=== PATIENT | female | born 1970 ===

== ENCOUNTER 2019-04-29 18:23 | Emergency (ER) | payer BC ==
--- OUTSIDE RECORDS SUMMARY | 2019-04-29 18:39 | XMS REPORT | Continuity of Care Document ---
:1970 External Reference #:[id number] Author Name Diana Duong MD Address [address] [place] [id number] Care Team Providers Name Role Phone Kristan Dove RPAC - Surgical Care Team Information Mobile Ui/Ux Designer Julito Titus BAKESHOP CLEANER - Nurse Care Team Information Mobile Ui/Ux Designer Practitioner Problems Active Problems Provider Date Traumatic arthropathy of the ankle and/or Domonique Barajas PA Onset: 2018 foot Vitamin D deficiency Julito Titus FNP Onset: 11/01/2018 Anemia Julito Titus FNP Onset: 11/01/2018 Elevated blood-pressure reading without Julito Titus FNP Onset: 11/2018 diagnosis of hypertension Social History Type Date Description Comments Sex Unknown Tobacco Use Start: Unknown Never Smoked Cigarettes ETOH Use Drinks Alcoholic Beverages Occasionally Recreational Drug Use Denies Drug Use Tobacco Use Start: Unknown Patient denies history of smoking Smoking Status Reviewed: 03/13/19 Patient denies history of smoking Allergies, Adverse Reactions, Alerts Description No Known Drug Allergies Medications Active Medications SIG Qnty Indications Ordering Provider Date Diclofenac Sodium ER 1 by mouth every 30tabs Diana Duong MD 2018 day with food 100mg Tablets ER 24HR Ibuprofen 200 3 tabs by mouth Unknown 200mg three times a Tablets day as needed History Medications No Active Medications Unknown 11/01/2018 - 11/11/2018 Diclofenac Sodium ER 1 by mouth every 30tabs Diana Duong MD 2018 - day with food 11/01/2018 100mg Tablets ER 24HR Medications Administered in Office Medication SIG Qnty Indications Ordering Provider Date Depomedrol 40mg/1cc Diana Duong MD 03/13/2019 (methylprednisolone acetate) Injection Betamethasone Acetate & Kristan Dove [facility] 06/11/2018 Sodium Phosphate 3 MG Of Each Injection Immunizations Description No Information Available Vital Signs Date Vital Result Comment 03/13/2019 2:00pm BP Systolic 130 mmHg BP Diastolic 70 mmHg Body Temperature 97.0 F Heart Rate 86 /min Height 65 inches 5'5" [place] body weight in kilograms 57 kg O2 % BldC Oximetry 97 % 03/03/2019 2:34pm BP Systolic 122 mmHg BP Diastolic 829 mmHg Body Temperature 97.7 F Heart Rate 70 /min Height 65 inches 5'5" [place] body weight in kilograms 57 kg O2 % BldC Oximetry 96 % Results Test Date Facility Test Result H/L Range Note CBC 11/01/2018 [facility] [address] White Blood 8.0 K/uL Normal 3.1-10.7 1 W/Automated [address] [place] [address] [phone] Red Blood Count 4.48 M/uL Normal 3.90-5.40 Hemoglobin 12.9 gm/dL Normal 11.6-15.8 Hematocrit 40.7 % Normal 36.0-46.1 Mean Cell Volume 90.8 fl Normal 80.9-99.0 Mean Corpuscular HGB 28.8 pg Normal 25.9-32.7 Mean Corpuscular HGB Conc 31.7 g/dL Normal 30.8-34.3 Platelet Count 378 K/uL High 155-360 Red Cell Distri Width SD 50.9 fl High 36-47 Red Cell Distri Width %CV 15.2 % High 11.7-14.4 Mean Platelet Volume 10.0 fL Normal 8.9-12.4 Neut% 69.2 % Normal 40.4-72.8 Lymph % 20.4 % Normal 20.0-42.0 [place] % 7.6 % Normal 4.3-13.2 Eo% 1.8 % Normal 0.0-6.6 Bas% 0.6 % Normal 0.0-1.1 Immature Grans 0.4 % Normal 0.0-5.0 NRBC % 0.0 /100WBC < 10/ 100 WBC Neut# 5.53 K/uL Normal 1.8-7.0 Lymph # 1.63 K/uL Normal 1.0-4.0 [place] # 0.61 K/uL Normal 0.3-0.9 Eos # 0.14 K/uL Normal 0.0-0.5 Baso # 0.05 K/uL Normal 0.0-0.1 Immature Grans Absolute 0.03 K/uL NRBC # 0.00 K/uL Comprehensive 11/01/[address] Glucose 90 mg/dL Normal 74-106 Metabolic Panel [address] [place] [address] [phone] BUN 18 mg/dL Normal 7-18 Creatinine 0.7 mg/dL Normal 0.6-1.3 Glom Filtration Rate, Estimate >60 mL/min >60 If >60 mL/min >60 2 BUN/Creat 25.7 ratio Sodium 140 mmol/L Normal 136-145 Potassium 4.1 mmol/L Normal 3.5-5.1 Chloride 107 mmol/L Normal 98-107 Carbon Dioxide 26 mmol/L Normal 21-32 Anion Gap 7 mEq/L Low 8-16 Calcium 8.6 mg/dL Normal 8.5-10.1 Total Protein 7.7 g/dL Normal 6.4-8.2 Albumin 3.6 g/dL Normal 3.4-5.0 Globulin 4.1 g/dL Normal 1.9-4.3 Alb/Glob 0.9 ratio Bilirubin,Total 0.2 mg/dL Normal 0.2-1.0 Sgot/Ast 23 U/L Normal 15-37 SGPT/Alt 24 U/L Normal 12-78 Alkaline Phosphatase 76 U/L Normal 45-117 LDL Cholesterol 11/01/[address] Cholesterol 240 mg/dL High < 200 3 Profile [address] [place] [address] [phone] Triglycerides 195 mg/dL High <150 4 HDL Cholesterol 65 mg/dL >40 5 LDL-Cholesterol 136 mg/dL < 100 6 Laboratory test 11/01/[address] Vitamin D,1,25 57.9 pg/mL 19.9-79.3 7 finding [address] [place] [address] [phone] Iron-Tibc-%Sat 11/01/2018 [facility] [address] Serum Iron 44 g/dL Low 50- 170 [address] [place] [address] [phone] Total Iron Binding Capacity 379 g/dL Normal 250-450 Transferrin %Saturation 12 % Normal 12-57 1 D64.9 Z00.00 E55.9 2 Note: Persistent reduction for 3 months or more in an eGFR <60 mL/min/1.73 m2 defines CKD. Patients with eGFR values >/=60 mL/min/1.73 m2 may also have CKD if evidence of persistent proteinuria is present. The original MDRD equation for estimated GFR is not valid for patients less than 18 years of age. Additional information may be found at www.kdoqi.org. 3 Reference Guidelines*: Desirable: ........... < 200 mg/dL Borderline High: ..... 200-239 mg/dL High: ................ >= 240 mg/dL * The National Cholesterol Education Program (NCEP) 4 Reference Guidelines*: Normal: ............. < 150 mg/dL Borderline High: .... 150-199 mg/dL High: ............... 200-499 mg/dL Very High: .......... > 500 mg/dL * Source: National Cholesterol Education Program (NCEP) 5 Reference Guidelines*: Low HDL: ..... < 40 mg/dL Normal: ..... 40-60 mg/dL Desirable: ... > 60 mg/dL *The National Cholesterol Education Program(NCEP) 6 Reference Guidelines*: Optimal:........... <100 mg/dL Near Optimal....... 100-129 mg/dL Borderline High.... 130-159 mg/dL High............... 160-189 mg/dL Very High.......... >=190 mg/dL * Source: National Cholesterol Education Program (NCEP) 7 Performed at: [address] [id number] Boatbuilder Supervisor: Evre Dozier MD, Phone: [phone] Procedures Date Code Description Status 03/13/2019 63276 Radiology, Knee 3 Views Completed 03/03/2019 11005 Radiology, Knee 3 Views Completed 11/27/2017 [id number] Mammogram Completed 09/27/2017 [id number] Colonoscopy Completed Medical Devices Description No Information Available Encounters Type Date Location Provider Dx Diagnosis Office Visit 03/03/2019 Orthopaedic Office Kristan Dove M25.562 Pain in left knee 2:30p S., RPAC M25.462 Effusion, left knee Office Visit 02/12/2019 4:15p Family Medicine Merry Jacob, R03.[address] PNP-BC, ADMISSION NURSE COORDINATOR, blood-pressure Ibclc reading, w/o diagnosis of htn J30.9 Allergic rhinitis, unspecified S83.402A Sprain of unsp collateral ligament of left knee, init encntr Office Visit 11/11/2018 10:30a Orthopaedic Office Domonique Barajas, M25.571 Pain in right PA ankle and joints of right foot 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, right ankle and foot R03.0 Elevated blood-pressure reading, w/o diagnosis of htn Office Visit 09/18/2018 1:15p Orthopaedic Office Kristan Dove M25.571 Pain in right S., RPAC ankle and joints of right foot 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, right ankle and foot Assessments Date Code Description Provider 03/13/2019 M17.12 Unilateral primary osteoarthritis, Diana Duong MD left knee 03/13/2019 M25.562 Pain in left knee Kristan Dove, [facility] 03/13/2019 S83.232D Complex tear of medial meniscus, Diana Duong MD current injury, left knee, subsequent encounter 03/03/2019 M25.562 Pain in left knee Kristan Dove, [facility] 03/03/2019 M25.462 Effusion, left knee Kristan Dove, [facility] 02/12/2019 R03.0 Elevated blood-pressure reading, Merry Jacob PNP-BC, ADMISSION NURSE COORDINATOR , without diagnosis of hypertension Ibclc 02/12/2019 J30.9 Allergic rhinitis, unspecified Merry Jacob PNP-BC, ADMISSION NURSE COORDINATOR, Ibclc 02/12/2019 S83.402A Sprain of unspecified collateral Merry Jacob, PNP-BC, ADMISSION NURSE COORDINATOR, ligament of left knee, initial Ibclc encounter 11/11/2018 M25.571 Pain in right ankle and joints of Domonique Barajas, PA right foot 11/11/2018 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, right ankle Domonique Barajas, PA and foot 11/11/2018 R03.0 Elevated blood-pressure reading, Domonique Barajas PA without diagnosis of hypert 11/01/2018 Z00.00 Encounter for general adult medical ClJulito jaramillo, ADMISSION NURSE COORDINATOR examination without abno 11/01/2018 R03.0 Elevated blood-pressure reading, CluneJulito, ADMISSION NURSE COORDINATOR without diagnosis of hypert 11/01/2018 D64.9 Anemia, unspecified Clune, Julito, ADMISSION NURSE COORDINATOR 11/01/2018 E55.9 Vitamin D deficiency, unspecified Clune, Jenniferjanes, ADMISSION NURSE COORDINATOR 11/01/2018 H61.23 Impacted cerumen, bilateral Clune, Julito, ADMISSION NURSE COORDINATOR 09/18/2018 M25.571 Pain in right ankle [facility] 09/18/2018 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 Please evaluate for RT distal tibia/talar Closed dome focus of osteonecrosis to determine whether surgery is indicated Patient will bring xray and MRI CD with her to the appointment. [address] [place] [address] [phone]
--- OUTSIDE RECORDS SUMMARY | 2019-04-29 18:40 | XMS REPORT | Continuity of Care Document ---
:1970 External Reference #:[id number] Author Name Kristan Dove, [facility] Address [address] [place] [id number] Care Team Providers Name Role Phone [facility] - Surgical Care Team Information Medical Claims Representative [phone] Julito Titus CONCRETE BLOCK PLANT SUPERVISOR - Nurse Care Team Information Medical Claims Representative Practitioner Problems Active Problems Provider Date Traumatic [...] denies history of smoking Smoking Status Reviewed: 02/12/19 Patient denies history of smoking Allergies, Adverse [...] Medication SIG Qnty Indications Ordering Provider Date Betamethasone Acetate & Kristan Dove [facility] 06/11/2018 Sodium Phosphate 3 MG Of Each Injection Immunizations Description No Information Available Vital Signs Date Vital Result Comment 03/03/2019 2:34pm BP Systolic 122 mmHg BP Diastolic 829 mmHg Body Temperature 97.7 F Heart Rate 70 /min Height 65 inches 5'5" [place] body weight in kilograms 57 kg O2 % BldC Oximetry 96 % 02/12/2019 4:04pm BP Systolic 146 mmHg BP Diastolic 84 mmHg Heart Rate 85 /min Height 65 inches 5'5" [place] body weight in kilograms 57 kg O2 % BldC Oximetry 98 % Results Test Date Facility Test Result H/L Range Note Xray 03/03/2019 [facility] - Orthopedic RMP, Knee, LT, < pending> [address] [facility], [facility] [place] [address] sunrise ([phone] view) CBC 11/01/2018 [facility] White Blood 8.0 K/uL Normal 3.1-10.7 1 W/Automated [address] [place] [address] [phone] Red Blood Count 4.48 M/uL Normal 3.90-5.40 [...] 40.4-72.8 Lymph % 20.4 % Normal 20.0-42.0 [place] % 7.6 % Normal 4.3-13.2 Eo% 1.8 % Normal 0.0-6.6 Bas% 0.6 % Normal 0.0-1.1 Immature Grans 0.4 % Normal 0.0-5.0 NRBC % 0.0 /100WBC < 10/ 100 WBC Neut# 5.53 K/uL Normal 1.8-7.0 Lymph # 1.63 K/uL Normal 1.0-4.0 [place] # 0.61 K/uL Normal 0.3-0.9 Eos # 0.14 K/uL Normal 0.0-0.5 Baso # 0.05 K/uL Normal 0.0-0.1 Immature Grans Absolute 0.03 K/uL NRBC # 0.00 K/uL Comprehensive 11/01/[address] Glucose 90 mg/dL Normal 74-106 Metabolic Panel [address] [place] [address] [phone] BUN 18 mg/dL Normal 7-18 Creatinine 0.7 [...] 76 U/L Normal 45-117 LDL Cholesterol 11/01/[address] Cholesterol 240 mg/dL High < 200 3 Profile [address] [place] [address] [phone] Triglycerides 195 mg/dL High <150 4 HDL Cholesterol 65 mg/dL >40 5 LDL-Cholesterol 136 mg/dL < 100 6 Laboratory test 11/01/[address] Vitamin D,1,25 57.9 pg/mL 19.9-79.3 7 finding [address] [place] [address] [phone] Iron-Tibc-%Sat 11/01/[address] [facility] [address] Serum Iron 44 g/dL Low 50- 170 [address] [place] [address] [phone] Total Iron Binding Capacity 379 g/dL Normal [...] Cholesterol Education Program (NCEP) 7 Performed at: [facility] [address] [id number] Billboard Poster: Ever Dozier MD, Phone: [phone] Procedures Date Code Description Status 03/03/2019 66131 Radiology, Knee 3 Views Completed 11/27/2017 [id number] Mammogram Completed 09/27/2017 [id number] Colonoscopy Completed Medical Devices Description No Information Available Encounters Type Date Location Provider Dx Diagnosis Office Visit 03/03/2019 Orthopaedic Office Kristan Dove M25.562 Pain in left knee 2:30p S., RPAC M25.462 Effusion, left knee Office Visit 02/12/2019 4:15p Family Medicine Merry Jacob, R03.[address] PNP-BC, SILVER PLATER, blood-pressure Ibclc reading, w/o diagnosis of htn [...] 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, right ankle and foot Office Visit 09/10/2018 2:45p Orthopaedic Office Kristan Dove M25.571 Pain in right S., RPAC ankle and joints of right foot 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, right ankle and foot Assessments Date Code Description Provider 03/03/2019 M25.562 Pain in left knee Kristan Dove., RPA 03/03/2019 M25.462 Effusion, left knee Kristan Dove S., RPAC 02/12/2019 R03.0 Elevated blood-pressure reading, Merry Jacob, PNP-BC, SILVER PLATER , without diagnosis of hypertension Ibclc 02/12/2019 J30.9 Allergic rhinitis, unspecified Merry Jacob PNP-BC, SILVER PLATER, Ibclc 02/12/2019 S83.402A Sprain of unspecified collateral Merry Jacob, PNP-BC, SILVER PLATER, ligament of left knee, initial Ibclc encounter 11/11/2018 M25.571 Pain in right ankle and joints of Domonique Barajas, JOHNNIE right foot 11/11/2018 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, right ankle Domonique Barajas, JOHNNIE and foot 11/11/2018 R03.0 Elevated blood-pressure reading, Domonique Barajas PA without diagnosis of hypert 11/01/2018 Z00.00 Encounter for general adult medical Clune, Jenchasferleiino, SILVER PLATER examination without abno 11/01/2018 R03.0 Elevated blood-pressure reading, Clune, Jenniferleiino, SILVER PLATER without diagnosis of hypert 11/01/2018 D64.9 Anemia, unspecified Clune, Jenchasferjanes, SILVER PLATER 11/01/2018 E55.9 Vitamin D deficiency, unspecified Clune, Jenniferleigh, SILVER PLATER 11/01/2018 H61.23 Impacted cerumen, bilateral Clune, Julito, SILVER PLATER 09/18/2018 M25.571 Pain in right ankle and joints of Kristan Dove RPAC right foot 09/18/2018 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 I have refilled the diclofenac and she will begin taking it regularly. I would like her to use it for a couple of weeks and if things are improving I will see her back in four weeks. If her pain and swelling are not getting better in the next couple of weeks she will contact the office and I will order an MRI. Functional Status Description No Information Available Mental Status Description No Information Available Referrals Refer to Reason for Referral Status Appt Date Sander Friend M.D. Please evaluate for RT distal tibia/talar Closed dome focus of osteonecrosis to determine whether surgery is indicated Patient will bring xray and MRI CD with her to the appointment. [address] [place] [address] [phone]
[2019-04-29 18:55] VITALS: BP 154/86
--- NOTE | 2019-04-29 19:26 | UC ---
Throat Pain/Nasal Estiven HPI - HPI Summary HPI Summary: Patient presents to urgent care with 3 days progressive sore throat and body aches and fatigue. 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 Patient denies any fevers but just felt like has felt warm. Patient painful swallowing. No drooling. No cough. Patient with postnasal drip and mild sinus congestion. No ear pain. No rash. Patient hasn't taken any wsxy-zio-eljfllv medications. Patient states she just feels like she is "withering "as she's been waiting for evaluation. Patient's medications reveals physical. Patient states she is not . - History of Current Complaint Chief Complaint: UCGeneralIllness Stated Complaint: ST Time Seen by Provider: 04/29/19 19:07 Hx Obtained From: Patient Hx Last Menstrual Period: 04/22/19 ?: No Onset/Duration: Gradual Onset Pain Intensity: 5 - Allergies/Home Medications Allergies/Adverse Reactions: Allergies Allergy/AdvReac Type Severity Reaction Status Date / Time No Known Allergies Allergy Verified 04/29/19 18:46 PMH/Surg Hx/FS Hx/Imm Hx Previously Healthy: Yes - Surgical History Surgical History: Yes Surgery Procedure, Year, and Place: carpal tunnel. kidney stone - Family History Known Family History: Positive: Non-Contributory - Social History Occupation: Employed Full-time Lives: With Family Alcohol Use: Weekly Substance Use Type: None Smoking Status (MU): Never Smoked Tobacco Review of Systems All Other Systems Reviewed And Are Negative: Yes Constitutional: Positive: Fever Skin: Positive: Negative Eyes: Positive: Negative - Tactile ENT: Positive: Sore Throat, Nasal Discharge, Sinus Congestion. Negative: Sinus Pain/Tenderness Respiratory: Positive: Negative Cardiovascular: Positive: Negative Gastrointestinal: Positive: Negative Physical Exam - Summary Physical Exam Summary: Vital Signs Reviewed: Yes A+Ox3, no distress Eyes: Conjunctiva Clear, TOM. EOM intact and full ENT: Hearing grossly normal TM x 2 clear - partially obscurred with cerumen, turbinates boggy, + PND, mmoist, uvula midline, ++ L>R exudate, diffuse eryttgena erythema Neck: Positive: Supple + submandibular LA L>R Respiratory: Positive: No respiratory distress, No accessory muscle use + CTA throughout no w/r Cardiovascular: RRR nl s1, s2 no m/r CBT <2 sec abd soft + BS nt/nd no guarding, no distension Musculoskeletal Exam: GRACIA x 4 without difficulty Strength Intact, ROM Intact Neurological: Positive: Alert, + sensation throughout Psychological: Positive: Normal Response To examiner Skin: Positive: no rash, no ecchymosis Triage Information Reviewed: Yes Vital Signs: Initial Vital Signs Temp 98.8 F 04/29/19 18:42 Pulse 80 04/29/19 18:42 Resp 18 04/29/19 18:42 BP 154/86 04/29/19 18:42 Pulse Ox 100 04/29/19 18:42 Throat Pain/Nasal Course/Dx - Course Course Of Treatment: Patient presents to urgent care with progressive sore throat body aches and fatigue. Patient with sinus congestion postnasal drip. 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 On exam vital signs are stable. Patient appears fatigued. Patient was enlarged exudative tonsils (MRI as well as submandibular lymphadenopathy. Patient's strep was negative. Discussed with patient sensitivity and concern were given the exudative findings. Will start patient antibiotics. This time we will not send culture. Recommend gargles but warm salt water. Recommend decongestant. For work. Motrin Tylenol. Hydrate. Return precautions. Patient comfortable in agreement with plan. Patient given note for work tomorrow as well as tomorrow and . Pt with elevated BP - likely related to visit/sx -recommend follow-up with PCP - Differential Dx/Diagnosis Provider Diagnosis: Exudative pharyngitis Discharge ED - Sign-Out/Discharge Documenting (check all that apply): Patient Departure All imaging exams completed and their final reports reviewed: No Studies - Discharge Plan Condition: Stable Disposition: HOME Prescriptions: Cefdinir [Cefdinir 300 MG CAP] 300 mg PO BID #20 cap Patient Education Materials: Pharyngitis (ED) Forms: *Gen. Provider Communication, *Work Release Referrals: [facility] [Outside] No Primary Care Phys,NOPCP [Primary Care Provider] - Additional Instructions: - Okay to alternate ibuprofen (Advil, Motrin) and Tylenol every 3 hours for pain. Take with food. Do NOT take for more than 4-5 days - Okay to gargle and spit every 4 hours as needed for pain - Stay well hydrated - frequent sips of cold fluids will be soothing to your throat (popsicles, jello, ice cream, ice water). Avoid excess caffeine until your symptoms have resolved. -Throat infections are spread by oral secretions - do not share eating or drinking utensils until you symptoms are resolved. Clean items that may get your secretions such as cell phones, ipads, computer mouse, television remotes Once you have been on antibiotics for 2 days, change you pillowcase and your toothbrush - Take over the counter decongestant ( Claritin-D, Kassie-D, Zyrtec-D) - get plenty of restful sleep - Contact your doctor to arrange a follow-up appointment as needed - Billing Disposition and Condition Condition: STABLE Disposition: Home
== END 2019-04-29 19:47 | disposition home or self-care (01) ==
LOC: UCCORT 18:23
DX: J02.9 Acute pharyngitis, unspecified (principal)
CPT/HCPCS: 87651; 99212; G0463